=== PATIENT | male | born 1985 | race Caucasian/White ===

== ENCOUNTER 2018-10-27 12:15 | Emergency (ER) | payer OTHER ==
[~2018-10-27] VITALS: Ht 185.4 cm; Wt 90.7 kg
[2018-10-27 13:12] VITALS: BP 144/92
[2018-10-27] MEDS ORDERED: LIDOCAINE 1% HCL (LOCAL ANESTH.) INJ 20ML MDV IJ ONE (13:30)
== END 2018-10-27 15:23 | disposition home or self-care (01) ==
LOC: ER 12:28
DX: S01.81XA Laceration without foreign body of other part of head, initial encounter (principal); W22.09XA Striking against other stationary object, initial encounter; Y93.89 Activity, other specified; Y92.59 Other trade areas as the place of occurrence of the external cause; Y99.8 Other external cause status
CPT/HCPCS: 12011; 99283; J2001

== ENCOUNTER 2020-07-03 16:48 | Emergency (ER) | payer OTHER ==
[~2020-07-03] VITALS: Ht 185.4 cm; Wt 90.7 kg
[2020-07-03 17:03] VITALS: BP 141/98
[2020-07-03] MEDS ORDERED: KETOROLAC TROMETH 60MG/2ML VIAL IM ONE (19:15)
[2020-07-03] MEDS ORDERED: HYDROcodone-ACET 10/325MG TAB PO ONE (20:00)
== END 2020-07-03 20:39 | disposition home or self-care (01) ==
LOC: ER 16:48
DX: S33.5XXA Sprain of ligaments of lumbar spine, initial encounter (principal); G89.29 Other chronic pain; X58.XXXA Exposure to other specified factors, initial encounter; Y93.89 Activity, other specified; Y92.89 Other specified places as the place of occurrence of the external cause; Y99.0 Civilian activity done for income or pay
CPT/HCPCS: 72100; 96372; 99283; J1885

== ENCOUNTER 2024-08-27 09:47 | Emergency (ER) | payer OTHER ==
[~2024-08-27] VITALS: Ht 182.9 cm; Wt 92.0 kg
--- NOTE | 2024-08-27 10:09 | ED.PDOC ---
Alfonso. trauma (HPI) HPI Comments A 38 YEAR OLD MALE PRESENTS TO THE ED WITH COMPLAINT OF HEADACHE AND NECK PAIN S/P INJURY. PATIENT STATES HE WAS AT WORK YESTERDAY AND HE ACCIDENTALLY HIT HIS HEAD AND NECK ON A METAL DOOR. PATIENT REPORTS HE IS NOW EXPERIENCING A HEADACHE AND NECK PAIN THAT RADIATES DOWN TO HIS LEFT SHOULDER AND ARM. PATIENT DENIES V ISION CHANGES, LOC, FEVER, CHILLS, SHORTNESS OF BREATH, CHEST PAIN, ABDOMINAL PAIN, NAUSEA, VOMITING, OR OTHER COMPLAINTS. NO OTHER SYMPTOMS OR MODIFYING FACTORS AT THIS TIME. PATIENT IS ALERT, ORIENTED X 4, AND HAS STEADY GAIT. Chief Complaint: Head Injury Time Seen by MD: 09:58 Reviewed notes: Nurses Notes, Medications, Allergies Allergies: Coded Allergies: NO KNOWN ALLERGIES (Unverified , 10/27/18) Home Meds Active Scripts Prednisone (Prednisone) 20 Mg Tab, 40 MG PO DAILY, #20 TAB Prov:GERBER K[facility] 08/27/24 Tramadol HCl (Tramadol HCl) 50 Mg Tab, 50 MG PO TID, #30 TAB Prov:GERBER KAISER 08/27/24 Information Source: Patient Severity: Moderate Timing: Days Duration: Since onset, Days Prehospital treatment: None Location: Head, Neck Location of neck pain: (R) Posterior, (L) Posterior Mechanism: Blunt trauma Associated signs and symtoms: Headache Past Medical History PAST MEDICAL HISTORY: Denies Surgical History: Denies all surgeries Family History Family History: Reviewed,noncontributory to illness Social History Smoker: Non-Smoker Alcohol: Heavy Drugs: Denies Drug Use Lives In: Home Constitutional: denies: chills, diaphoresis, fatigue, fever, malaise, sweats, weakness, others EENTM: denies: blurred vision, double vision, ear bleeding, ear discharge, ear drainage, ear pain, ear ringing, eye pain, eye redness, hearing loss, mouth pain, mouth swelling, nasal discharge, nose bleeding, nose congestion, nose pain, photophobia, tearing, throat pain, throat swelling, voice changes, others Respiratory: denies: cough, hemoptysis, orthopnea, SOB at rest, shortness of breath, SOB with excertion, stridor, wheezing, others Cardiovascular: denies: chest pain, dizzy spells, diaphoresis, Dyspnea on exertion, edema, irregular heart beat, left arm pain, lightheadedness, palpitations, PND, syncope, others Gastrointestinal: denies: abdomen distended, abdominal pain, blood streaked bowels, constipated, diarrhea, dysphagia, difficulty swallowing, hematemesis, melena, nausea, poor appetite, poor fluid intake, rectal bleeding, rectal pain, vomiting, others Genitourinary: denies: burning, dysuria, flank pain, frequency, hematuria, incontinence, penile discharge, penile sore, pain, testicle pain, testicle swelling, urgency, others Neurological: reports: headache; denies: dizziness, fainting, left sided numbness, left sided weakness, numbness, paresthesia, pre-existing deficit, right sided numbness, right sided weakness, seizure, speech problems, tingling, tremors, weakness, others Musculoskeletal: reports: muscle pain, neck pain; denies: back pain, gout, joint pain, joint swelling, muscle stiffness, others Integumetry: denies: bruises, change in color, change in hair/nails, dryness, laceration, lesions, lumps, rash, wounds, others Allergic/Immunocompromised: denies: Difficulty Healing, Frequent Infections, Hives, Itching, others Hematologic/Lymphatic: denies: anemia, blood clots, easy bleeding, easy bruising, swollen glands, others Endocrine: denies: excessive hunger, excessive sweating, excessive thirst, excessive urination, flushing, intolerance to cold, intolerance to heat, unexplained weight gain, unexplained weight loss, others Psychiatric: denies: anxiety, bipolar disorder, depression, hopeless, panic disorder, schizophrenia, sleepless, suicidal, others All Other Systems: Reviewed and Negative Physical Exam General Appearance: No Apparent Distress, Obese HEENT: Head (NO CONTUSIONS nd hematomas of scalp. ), Normal ENT Inspection, PERRL/EOMI, Pharynx Normal, TMs Normal Neck: Full Range of Motion, Normal Inspection, Supple, Tender Lateral (TENDERNESS AND MUSCLE SPASM ON POSTERIOR NECK, NO BONY TENDERNESS, SWELLING AND DEFORMITY. ) Respiratory: Chest Non-Tender, Lungs Clear, No Accessory Muscle Use, No Respiratory Distress, Normal Breath Sounds Cardiovascular: No Edema, No JVD, No Murmur, No Gallop, Normal Peripheral Pulses, Regular Rate/Rhythm Breast Exam: Deferred Gastrointestinal: No Organomegaly, Non Tender, No Pulsatile Mass, Normal Bowel Sounds, Soft Genitalia: Deferred Pelvic: Deferred Rectal: Deferred Extremities: No calf tenderness, Normal capillary refill, Normal inspection, Normal range of motion, Non-tender, No pedal edema Musculoskeletal : Apperance: Normal Neurologic: Alert, photographer apprentice II-XII nml as Tested, No Motor Deficits, Normal Affect, Normal Mood, No Sensory Deficits Cerebellar Function: Normal Reflexes: Normal Skin: Dry, Normal Color, Warm Peripheral Pulses: 2+ carotid (R), 2+ carotid (L) Lymphatic: No Adenopathy Was a procedure done? Was a procedure done?: No Differential Diagnosis Multiple Trauma: Closed Head Injury, Fractures, Contusion, Other (SPRAIN) Neck Injury: Cervical Muscle Spasm, Cervical Sprain, Cervical Strain, Cervical Fracture X-Ray, Labs, Meds, VS Vital Signs Date Time Temp Pulse Resp B/P (MAP) Pulse Ox O2 Delivery O2 Flow Rate FiO2 08/27/24 11:50 98.9 69 16 120/82 (95) 98 98.9 08/27/24 10:05 97.0 78 16 133/95 (108) 99 97.0 Current Medications Medications (Trade) Dose Ordered Sig/Apollo Route Start Time Stop Time Status Last Admin Ketorolac Tromethamine (Toradol Injection) 60 mg ONCE ONCE IM 08/27/24 10:15 08/27/24 10:16 DC 08/27/24 10:32 CT CERVICAL WITHOUT CONTRAST INDICATION: INJURY EXAM DATE: 08/27/2024 10:19 AM COMPARISON: None RADIATION DOSE: CTDIvol: 23 mGy, DLP: 560 mGy*cm PROCEDURE: Utilizing the CT scanner, contiguous axial images were obtained t hrough the cervical spine. Coronal and sagittal reformatted images were then generated. All CT scans at this medical facility are performed using dose modulation techniques as appropriate to a performed exam including the following: Automated exposure control was utilized; adjustment of the MA and/or KV according to patient size; and use of iterative reconstruction technique. FINDINGS: Alignment at the craniocervical junction is maintained. The cortical margins are intact. The vertebral body heights and cervical alignment are normal. The facet joints show normal alignment without fracture. The intervertebral disc spaces are preserved. The paraspinal soft tissues appear normal. On axial images: There is multilevel posterior disc bulge, no central canal barbara rowing, mild bilateral neural foramina narrowing at C5-6. IMPRESSION: No cervical spine fracture or subluxation. ATED BY: LAWSON DELONG MD DICTATED DATE/TIME: 08/27/241055 SIGNED BY: LAWSON DELONG MD SIGNED DATE/TIME: 08/27/241055 CC: EXAM: CT HEAD WITHOUT CONTRAST HISTORY: INJURY COMPARISON: None TECHNIQUE: Noncontrast axial CT images of the head were performed. Sagittal and coronal reformatted images were obtained. This CT exam was performed using 1 or more of the following dose reduction techniques: Automated exposure control, adjustment of the mA and/or kv according to patient size, or the use of iterative reconstruction techniques. Radiation Dose: CTDI volume is 61.28 mGy. Dose-length product is 980.51 mGy*cm FINDINGS: No intracranial hemorrhage, mass, midline shift, hydrocephalus, or evidence of acute large vessel infarct. There is dolichocephaly. There is mild mucosal thickening of the left maxillary sinus. The bilateral mastoid air cells and middle ear spaces are clear. No cranial fracture or scalp edema. There is an old fracture of the left orbital medial wall. IMPRESSION: 1. No acute intracranial process. 2. Mild left maxillary sinus disease. 3. Old fracture of the left orbital medial wall. ATED BY: ETHEL DAVILA MD DICTATED DATE/TIME: 08/27/241046 SIGNED BY: ETHEL DAVILA MD SIGNED DATE/TIME: 08/27/241046 CC: X-Ray, Labs, Meds, VS Comment EXTERNAL MEDICAL RECORDS REVIEWED: [NONE] INDEPENDENT HISTORIANS: [NONE] SOCIAL DETERMINANTS OF HEALTH: [NONE] LABS ORDERED: NONE REVIEWED AND INTERPRETED RESULTS: NONE IMAGING ORDERED: CT BRAIN, CT C-SPINE TREATMENTS ORDERED: TORADOL 60MG IM PROCEDURES PERFORMED: NONE CRITICAL CARE TIME: NONE I HAVE DISCUSSED THE PATIENT WITH THE ATTENDING PHYSICIAN DR. JOSEPH AND HE AGREES WITH THE PATIENT'S PLAN OF CARE AND DISPOSITION. BASED ON HISTORY OF PRESENT ILLNESS, AND PHYSICAL EXAM, PATIENT WILL BE DISCHARGED HOME. DISCUSSED PLAN FOR DISCHARGE HOME WITH RX [IBUPROFEN 800MG]. MEDICATION WARNINGS GIVEN. SHARED DECISION MAKING: DISCUSSED WITH PATIENT THAT THEIR WORKUP WAS NORMAL. PATIENT INSTRUCTED TO FOLLOW UP WITH PRIMARY CARE PROVIDER IN 1-2 DAYS FOR RE- EVALUATION OF SYMPTOMS. PATIENT VERBALIZES UNDERSTANDING TO RETURN TO ED FOR NEW OR WORSENING SYMPTOMS OR IF FOLLOW UP WITH PCP CANNOT BE OBTAINED. PATIENT FEELS COMFORTABLE GOING HOME AT THIS TIME. ALL QUESTIONS ADDRESSED AT TIME OF DISCHARGE. Images Reviewed?: Images reviewed and evaluated by me Time of 1ST Reevaluation: 11:55 Reevaluation 1ST: Improved Patient Education/Counseling: Diagnosis, Treatment, Need For Follow Up Family Education/Counseling: Diagnosis, Treatment Medical Screening: No EMC Exist At This Time Departure 1 Departure Time of Disposition: :55 Impression: Primary Impression: Acute headache Qualified Codes: R51.9 - Headache, unspecified Additional Impressions: Head injury Qualified Codes: S09.90XA - Unspecified injury of head, initial encounter Cervical muscle strain Qualified Codes: S16.1XXA - Strain of muscle, fascia and tendon at neck level, initial encounter Disposition: HOME / SELF CARE / HOMELESS Condition: Stable Additional Instructions: FOLLOW UP WITH [facility] IN 1-2 DAYS. TAKE MEDICATIONS PRESCRIBED. RETURN TO ED FOR ANY NEW OR WORSENING SYMPTOMS. e-Prescriptions Prednisone (Prednisone) 20 Mg Tab 40 MG PO DAILY, #20 TAB Prov: GERBER [facility] 08/27/24 Tramadol HCl (Tramadol HCl) 50 Mg Tab 50 MG PO TID, #30 TAB Prov: GERBER KA[facility] 08/27/24 Discharged With: Self, Hat Finishing Materials Preparer Critical Care Note Critical Care Time?: No Stability Stability form required: No I personally scribed for GERBER KAISER ([email or web address]) on 08/27/24 at 10:09. Electronically submitted by Bhavik Paredes ([email or web address]). I personally scribed for GERBER KAISER ([email or web address]) on 08/27/24 at 11:08. Electronically submitted by Bhavik Paredes ([email or web address]). GERBER KAISER Aug 27, 2024 10:09
[2024-08-27] MEDS: KETOROLAC TROMETH 60MG/2ML VIAL IM ONE (10:32)
--- NOTE | 2024-08-27 10:49 | DVH ---
EXAM: CT HEAD WITHOUT CONTRAST HISTORY: INJURY COMPARISON: None TECHNIQUE: Noncontrast axial CT images of the head were performed. Sagittal and coronal reformatted i mages were obtained. This CT exam was performed using 1 or more of the following dose reduction techn iques: Automated exposure control, adjustment of the mA and/or kv according to patient size, or the u se of iterative reconstruction techniques. Radiation Dose: CTDI volume is 61.28 mGy. Dose-length product is 980.51 mGy*cm FINDINGS: No intracranial hemorrhage, mass, midline shift, hydrocephalus, or evidence of acute large vessel inf arct. There is dolichocephaly. There is mild mucosal thickening of the left maxillary sinus. The bila teral mastoid air cells and middle ear spaces are clear. No cranial fracture or scalp edema. There is an old fracture of the left orbital medial wall. IMPRESSION: 1. No acute intracranial process. 2. Mild left maxillary sinus disease. 3. Old fracture of the left orbital medial wall.
--- NOTE | 2024-08-27 10:59 | DVH ---
CT CERVICAL WITHOUT CONTRAST INDICATION: INJURY EXAM DATE: 08/27/2024 10:19 AM COMPARISON: None RADIATION DOSE: CTDIvol: 23 mGy, DLP: 560 mGy*cm PROCEDURE: Utilizing the CT scanner, contiguous axial images were obtained through the cervical spine . Coronal and sagittal reformatted images were then generated. All CT scans at this medical facility are performed using dose modulation techniques as appropriate t o a performed exam including the following: Automated exposure control was utilized; adjustment of th e MA and/or KV according to patient size; and use of iterative reconstruction technique. FINDINGS: Alignment at the craniocervical junction is maintained. The cortical margins are intact. Th e vertebral body heights and cervical alignment are normal. The facet joints show normal alignment wi thout fracture. The intervertebral disc spaces are preserved. The paraspinal soft tissues appear norm al. On axial images: There is multilevel posterior disc bulge, no central canal narrowing, mild bilateral neural foramina narrowing at C5-6. IMPRESSION: No cervical spine fracture or subluxation.
[2024-08-27] MEDS ORDERED: TRAM-626 PO (11:34)
[2024-08-27] MEDS ORDERED: PRED20TA2 PO (11:34)
[2024-08-27 11:50] VITALS: BP 120/82; PULSE 64; RESP 18; TEMP 98.9; O2SAT 99
== END 2024-08-27 11:53 | disposition home or self-care (01) ==
LOC: ER 09:47
DX: S16.1XXA Strain of muscle, fascia and tendon at neck level, initial encounter (principal); S09.90XA Unspecified injury of head, initial encounter; W22.8XXA Striking against or struck by other objects, initial encounter; R51.9 Headache, unspecified; Y93.89 Activity, other specified; Y92.89 Other specified places as the place of occurrence of the external cause; Y99.8 Other external cause status
CPT/HCPCS: 70450; 72125; 96372; 99285; J1885